=== PATIENT | female | born 1940 | race Caucasian/White ===

== ENCOUNTER 2017-01-28 15:50 | Inpatient (IN) | payer OTHER ==
--- NOTE | ~2017-01-28 | CR63 ---
[facility] A Service of [facility] RADIOLOGY TEXT RESULTS PATIENT: RAFITA BERG LOCATION: [facility] 334- : 42 UNIT #: [id number] AGE: [address]: Flor Ba MD SEX: F ORDER DR: [id number] [facility] [address] [facility]. [place], [place] [address] [id number] I MR#: [id number] Acc #: [id number] NAME: RAFITA BERG. : 1940 SEX: F STUDY DATE/TIME: 02/02/2017 19:03 UNIT: [address] ROOM: [facility] STUDY DESCRIPTION: CR Chest 2 View Attending Physician: Flor Ba M.D. Ordering Physician: Flor Ba M.D. Primary Care Physician: Sharif Marcus M.D. MEDICAL IMAGING REPORT This report is preliminary unless electronic signature is present EXAM Two views chest, 02/02/2017. HISTORY Acute respiratory failure, pneumonia. Duration a few days. TECHNIQUE AP and lateral radiographs of the chest are presented. COMPARISON 01/31/2017, 0453 hours. FINDINGS No acute-appearing bony abnormality. Incompletely visualized posterior fixation hardware at lumbar spine level. Hardware appears intact in visualized extent. Heart probably mildly enlarged. Lungs well inflated. No acute disease in right lung. Airspace disease at the left lung base is improved but not yet resolved. There are probably components of atelectasis and pneumonia present. There is a small left pleural effusion, probably smaller than on prior study. The left mid to upper lung zone is clear. There is no pneumothorax or suspicious nodule. There is healed granulomatous disease. Dictated by... Manfred Sterling M.D. THIS IS AN ELECTRONICALLY VERIFIED REPORT Manfred Sterling M.D. at 02/04/2017 10:44 PM CRICKET/acosta TD: 02/03/2017 07:22 [facility] A Service of [facility] RADIOLOGY TEXT RESULTS PATIENT: RAFITA BERG LOCATION: [facility] 334-01 : 42 UNIT #: [id number] AGE: [address]: Flor Ba MD SEX: F ORDER DR: GARRICK #: [id number] MEDICAL IMAGING REPORT Page 1 of 1 COPY
--- NOTE | ~2017-01-28 | DS ---
Unit #: [id number] #: [id number] Patient: AISHWARYA BERG [id number] [place] [id number] I MR#: [id number] NAME: AISHWARYA BERG. ROOM: 334 Age: 76 Sex: F Admission Date: 01/28/2017 : 1940 Discharge Date: Attending Physician: Flor Ba M.D. Primary Care Physician: Sharif Marcus M.D. DISCHARGE SUMMARY FINAL DIAGNOSES 1. Acute on chronic hypoxic respiratory failure. 2. Pneumonia. 3. Pulmonary embolism ruled out. 4. Acute exacerbation of chronic obstructive pulmonary disease. 5. Acute on chronic systolic and diastolic congestive heart failure. 6. Severe esophagitis with esophageal ring and duodenal ulcer. 7. Hypotension which is resolved. OTHER MEDICAL HISTORY 1. Chronic back pain with multiple spine surgeries. 2. Chronic anxiety. 3. Tobacco abuse. 4. B12 deficiency. DISCHARGE MEDICATIONS 1. Please note the patient received IV ceftriaxone and IV Zithromax during hospitalization. We are going to consult paper rewinder operator before discharge about the antibiotics. 2. Cyanocobalamin 1000 mcg injection q.7 days. 3. Potassium 20 mEq daily. 4. Percocet 10/325 mg 1 tablet t.i.d. p.r.n. severe pain. 5. Duragesic patch 75 mcg q.72 h. 6. Furosemide 40 mg daily. 7. Mucomyst 400 mg nebulizer q.12 h. 8. Coreg 3.125 mg b.i.d. Hold if systolic blood pressure is less than 100. 9. Xanax 1 mg b.i.d. 10. Prednisone 40 mg daily for 4 days, decreased by 10 mg every 3 days until off. 11. Mini-Neb treatments with duo-nebs q.i.d. and q.[address]ULTANTS [address]. Arnulfo Styles from pulmonary services. PROCEDURES PERFORMED Bronchoscopy done on 01/31/2017. It showed the patient did have thick mucoid secretions in both lungs which was therapeutically suctioned. DIAGNOSTIC DATA LABORATORY: At discharge, bronch culture is 1+ normal elena. BMP showed sodium 143, potassium 4.1, chloride 107, BUN 24, creatinine 0.6, magnesium 1.7. CBC shows white blood cell count 13.7, hemoglobin 11.5, hematocrit 35.9 and platelet count of 222. BNP on 01/31/2017 was 1,082. Troponin Unit #: [id number] #: [id number] Patient: AISHWARYA BERG was less than 0.05. IMAGING: Most recent chest x-ray was done 01/31/2017, which showed left basilar opacity and pleural fluid. CTA of the chest was done and shows air fluid level within the left lower lobe bronchus suggesting collapse of left lower lobe and internal hypoattenuation. Findings are aspiration and mucus plugging left lower lobe. HOSPITAL COURSE Ms. Aishwarya Berg is a 76-year-old female who was admitted on 01/28/2017 with shortness of breath. The patient was found to have pufay-rz-pyjuemz hypoxic respiratory failure, pneumonia, chronic obstructive pulmonary disease exacerbation, congestive heart failure. The patient was treated with oxygen, mini-neb treatment, IV antibiotics, IV steroids. Dr. Styles was consulted. The patient had bronchoscopy done with findings as above. Cultures are negative. The patient will require 24-hour oxygen. She uses only at night at home. We need to continue antibiotics, tapering dose of steroids and nebulizer treatment. The patient does have a history of chronic systolic and diastolic congestive heart failure. BNP was elevated. The patient did receive diuretics during hospitalization and we are going to discharge her on direction to keep an eye on her input and output and make her fluid restriction 1400 cc a day. The patient does have severe esophagitis with esophageal ring. There is a question of aspiration. A swallow study was done during hospitalization and diet was adjusted accordingly. Speech evaluated. Mechanical soft and ground meats. No mixed. [place] thick liquids with dietary restrictions. Chin tuck, upright for all p.o. Assist with meals. PHYSICAL EXAMINATION VITALS: On discharge, blood pressure 121/64, respiratory rate 18, pulse 83, temperature 98.0. HEENT: Normocephalic. CHEST: Decreased air entry bilaterally. HEART: S1 and S2 positive. Regular rhythm. ABDOMEN: Soft. EXTREMITIES: Negative edema. DISPOSITION The patient will be discharged if the rehab facility is available and after evaluation by Dr. Styles. DISCHARGE INSTRUCTIONS 1. The patient will received Lasix 20 mg IV 1 dose. 2. Oxygen will be needed 24/. 3. Physical therapy and occupational therapy at rehab. 4. CBC and BMP in one week. 5. Chest x-ray will be done before discharge. 6. Medications as per medication reconciliation. Dictated by... Flor Ba M.D. Unit #: [id number] #: [id number] Patient: AISHWARYA BERG KN/gz TD: 02/02/2017 10:47 JOB #: [id number] DISCHARGE SUMMARY Page 1 of 1 X Flor Ba MD X DISCHARGE SUMMARY
--- NOTE | ~2017-01-28 | HP ---
Unit #: [id number] #: [id number] Patient: RAFITA BERG [id number] [address] [address] [id number] I MR#: [id number] NAME: RAFITA BERG. ROOM: 334 Age: 76 Sex: F Admission Date: 01/28/2017 : 1940 Attending Physician: Flor Ba M.D. Primary Care Physician: Sharif Marcus M.D. HISTORY AND PHYSICAL CHIEF COMPLAINT Shortness of breath. HISTORY OF PRESENT ILLNESS This is a 76-year-old female who is a very poor historian is not able to provide much history but, according to her, she has not been feeling well for the last one week. EMS was called and patient was brought to the ER. She has been vomiting for the last two days. She thinks that she is dehydrated. Her blood pressure was down 94/72. The patient complained of legs hurt, everything hurts. There is no family member in the room. Will try to contact family member for detailed history. PAST MEDICAL HISTORY 1. Cardiomyopathy with ejection fraction of 15% to 20%. 2. Grade III diastolic dysfunction. 3. Severe ulcerative esophagitis. 4. Chronic respiratory failure. 5. COPD. 6. Aspiration pneumonia, multiple times. 7. Chronic back pain with multiple spine surgeries. 8. Chronic anxiety. 9. Tobacco abuse. HOME MEDICATIONS 1. Percocet 10/325 one tablet t.i.d. 2. ProAir one inhaler t.i.d. 3. Cyanocobalamin 1000 mcg injection weekly. 4. Xanax 1 mg b.i.d. 5. Coreg 3.125 mg b.i.d. 6. Combivent one inhaler q.i.d. 7. Duragesic patch 75 mcg per hour daily. 8. Ipratropium nebulizer treatment q.i.d. ALLERGIES Morphine. SOCIAL HISTORY Patient lives at home with her son. She smokes one pack per day. No history of alcohol abuse or drug abuse. FAMILY HISTORY Positive for CVA. Patient's mother also had congestive heart failure. REVIEW OF SYSTEMS Unit #: [id number] #: [id number] Patient: RAFITA BERG Not obtainable at this time. PHYSICAL EXAMINATION VITAL SIGNS: Blood pressure 90/50, respiratory rate 20, pulse 68, temperature 98.9, oxygen saturation is 94%. GENERAL: The patient is lying in bed. Does not seem to be in any distress. She is on BiPAP at this time and is being evaluated in room 334. HEAD: Normocephalic. Eye movements are normal. Pale conjunctivae. CHEST: Decreased air entry bilateral. Wheezing is heard. Crackles are heard. HEART: S1, S2 positive, regular rhythm. ABDOMEN: Soft. EXTREMITIES: Negative edema. Pulses are palpable. NEUROLOGIC: Patient seems to be somewhat lethargic. She is awake. Does answer some questions. DIAGNOSTIC STUDIES LABORATORY: ABG on 4 liters shows pH 7.48, pCO2 is 36.7, pO2 is 72.5, oxygen saturation is 93%. Troponin less than 0.05. Lactic acid 1.2. BMP shows sodium 131, potassium 3.3, chloride 93, BUN 49, creatinine 0.7, alkaline phosphatase 111. CBC shows WBC 21.7, hemoglobin 15.3, hematocrit 46.2, platelet count 306. BNP 277. Blood cultures are negative so far. IMAGING: Chest x-ray single view was done which shows right basilar infiltrate. CT scan of the abdomen and pelvis was done which shows right lower lobe pneumonia and sigmoid diverticulosis without evidence of any diverticulitis. CTA of the chest was done which has 1) pretty significant air-fluid levels within the left lower lobe bronchus with distal collapse of the left lower lobe with internal hypoattenuation. Findings are worrisome for aspiration and mucous plugging of the left lower lobe. 2) questionable tiny nonocclusive subsegmental pulmonary embolism. ASSESSMENT AND PLAN Patient is being admitted to telemetry unit with: 1. Zihvd-wo-tjosmdf hypoxic respiratory failure. 2. Pneumonia. 3. Probable pulmonary embolism right lower lobe. 4. Chronic obstructive pulmonary disease exacerbation. 5. Congestive heart failure, systolic and diastolic, elnqg-sv-iavsunm. 6. Severe esophagitis with esophageal ring and duodenal ulcer. 7. Hypotension. PLAN 1. Admit to telemetry unit. Dr. Styles has been consulted. 2. IV Rocephin and IV Zithromax is being started. 3. IV Solu-Medrol 60 mg q.6 h. for COPD exacerbation. 4. Lovenox is being increased to 1 mg/kg body weight subcu q.12 h. for possible pulmonary embolism. 5. Swallow study will be done to rule out aspiration. 6. All medications have been reviewed and adjusted. 7. Plan of care has been discussed with patient. Unit #: [id number] #: [id number] Patient: RAFITA BERG Dictated by Angelita Chinchilla/anette TD: 01/29/2017 15:15 JOB #: [id number] HISTORY AND PHYSICAL Page 1 of 1 X Flor Ba MD X HISTORY AND PHYSICAL
--- NOTE | ~2017-01-28 | CT16 ---
[facility] A Service of [facility] & [facility] RADIOLOGY TEXT RESULTS PATIENT: RAFITA BERG LOCATION: [facility] 334-01 : 42 UNIT #: [id number] AGE: [address]: Flor Ba MD SEX: F ORDER DR: [id number] [facility] [address] [place], [place] [address] [id number] I MR#: [id number] Acc #: [id number] NAME: RAFITA BERG. : 1940 SEX: F STUDY DATE/TIME: 01/29/2017 8:16 UNIT: A U ROOM: [facility] STUDY DESCRIPTION: CT Angio Chest for PE Attending Physician: Flor Ba M.D. Ordering Physician: Arnulfo Styles M.D. Primary Care Physician: Sharif Marcus M.D. MEDICAL IMAGING REPORT This report is preliminary unless electronic signature is present EXAM CT angiography of the chest with IV contrast, PE protocol COMPARISON CT chest dated May 31, 2015 INDICTIONS 76-year-old female with dyspnea and cough for 6 days, worsening today with decrease suction saturation. FINDINGS Axial CT imaging of the chest was performed during arterial phase after IV administration of 80 mL Isovue-370. Coronal MIPs and sagittal reformats were constructed. The CT exam was performed with one or more of the following radiation dose reduction techniques: automatic exposure control, adjustment of mA and/or kV according to patient size, and iterative reconstruction. Evaluation of thyroid gland is limited by streak artifact from metal density over the left upper chest. There is mild mucous filling or mural thickening of the right lower lobe bronchus with bronchovascular thickening extending into the right lower lobe. Evaluation for pulmonary embolus in right lower lobe is limited by motion. There is an apparent peripheral nonocclusive tiny filling defect in a subsegmental branch in one of the right lower lobe pulmonary arteries. This may be an artifact. There are tree-in-bud nodular opacities seen throughout the right lower lobe suggesting acute bronchiolitis. There is minimal dependent atelectasis in the right lower lobe. There is a background of emphysema. Calcified granuloma right upper lobe. Focal pleural calcification in the dependent right upper lobe perhaps due to remote trauma or infection. There is volume loss in the left lower lobe with internal hypoattenuation despite the volume loss. This is favored to represent a pneumonia and STS. [facility] A Service of [facility] & [facility] RADIOLOGY TEXT RESULTS PATIENT: RAFITA BERG LOCATION: A 334-01 : 42 UNIT #: [id number] AGE: [address]: Flor Ba MD SEX: F ORDER DR: there is air-fluid level within the left lower lobe bronchus. Findings are concerning for ongoing aspiration. There is diffuse bronchial wall thickening in the lungs suggesting acute and/or chronic bronchitis. No pleural effusion or pneumothorax. Mild cardiomegaly. Dilatation of the main pulmonary artery measuring up to 3.3 cm suggesting pulmonary arterial hypertension. Diffuse atherosclerotic calcification of the thoracic aorta with extension into the proximal common carotid arteries. There is dense calcification at the origin of the left subclavian artery which is likely causing some degree of stenosis. Noncalcified and calcified plaque seen in the upper abdominal aorta with extension of calcified and noncalcified plaque to the origins of the celiac and superior mesenteric arteries. These vessels are incompletely imaged but appear to remain patent. No adenopathy. Calcified granulomas within the spleen. Small hiatal hernia. IMPRESSION 1. Air-fluid level within the left lower lobe bronchus with distal collapse of left lower lobe and internal hypoattenuation. Findings are worrisome for aspiration and/or mucous plugging with left lower lobe pneumonia. There is no associated pleural effusion. In the right lower lobe within the right lower lobe bronchus there is also an air-fluid level and there are peripheral tree-in-bud nodular opacities throughout the right lower lobe, suggesting bronchiolitis. Ongoing aspiration is not excluded. 2. Questionable tiny nonocclusive subsegmental pulmonary embolus in the right lower lobe. This region is limited in evaluation due to motion. This could certainly represent motion artifact but tiny nonocclusive pulmonary embolus cannot be excluded. One could consider short-term interval CT angiography followup versus empiric treatment. It is thought that the primary issue causing dyspnea and hypoxia is within the left lower lobe where again, aspiration pneumonia is suspected. 3. Dilatation of the main pulmonary artery suggestive of pulmonary hypertension. 4. Focal plaque along the posterior pleura right upper lobe, which is calcified, possibly due to remote trauma or infection but asbestosis exposure could cause similar findings. There are calcified granulomas seen elsewhere in the lungs. 5. At least mild possibly moderate stenosis of origin of the left subclavian artery due to calcified plaque. There is noncalcified and calcified plaque in the abdominal aorta with extension to the proximal celiac and superior mesenteric artery. 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 There is at least mild, possibly moderate stenosis at the origin of superior mesenteric artery, incompletely evaluated on this study. 6. Emphysema. [facility] A Service of [facility] RADIOLOGY TEXT RESULTS PATIENT: RAFITA BERG LOCATION: [facility] 334-01 : 42 UNIT #: [id number] AGE: [address]: Flor Ba MD SEX: F ORDER DR: Dictated by... Yan Hancock M.D. THIS IS AN ELECTRONICALLY VERIFIED REPORT Yan Hancock M.D. at 02/05/2017 4:16 PM Lacey TD: 01/29/2017 13:21 JOB #: [id number] MEDICAL IMAGING REPORT Page 1 of 1 COPY
--- NOTE | ~2017-01-28 | CT4 ---
[facility] A Service of [facility] & [facility] RADIOLOGY TEXT RESULTS PATIENT: RAFITA BERG LOCATION: [facility] 334-01 : 42 UNIT #: [id number] AGE: [address]: Flor Ba MD SEX: F ORDER DR: [id number] [facility] [address] [place], [place] [address] [id number] I MR#: [id number] Acc #: [id number] NAME: RAFITA BERG. : 1940 SEX: F STUDY DATE/TIME: 01/28/2017 16:53 UNIT: A PCU ROOM: [facility] STUDY DESCRIPTION: CT Abd and Pelv Wo Cont Attending Physician: Flor Ba M.D. Ordering Physician: Handy Holbrook M.D. Primary Care Physician: Sharif Marcus M.D. MEDICAL IMAGING REPORT This report is preliminary unless electronic signature is present EXAM CT abdomen and pelvis, 01/28/2017 INDICATION Abdominal pain on the right side for the last 2 days with vomiting. Pain currently rates 10 out of 10. TECHNIQUE Axial images were obtained through the abdomen and pelvis without contrast. Multiplanar reformats were obtained. Comparison is made with 12/18/2104. This CT exam was performed with one or more of the following radiation dose reduction techniques: automatic exposure control, adjustment of mA and/or kV according to patient size, and iterative reconstruction. FINDINGS ABDOMEN: Dense consolidation in the right lower lobe is presumably secondary to pneumonia. There is extensive atherosclerotic disease. There is also extensive streak artifact from the patient's spinal fusion hardware. No renal or ureteral stones are seen and there is no hydronephrosis. There is a left renal cyst. The unenhanced solid organs are otherwise grossly normal. Unopacified GI tract is normal. There is no free fluid. The patient is fused from L2 through S1 with pedicle screws. Laminectomies are present as well. PELVIS: There are no lower ureteral stones. The bladder is normal. The uterus is surgically absent. There is mild sigmoid diverticulosis. There is no evidence of acute diverticulitis. GI tract is otherwise unremarkable. The appendix is not clearly seen. 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 [facility]. [facility] A Service of [facility] & [facility] RADIOLOGY TEXT RESULTS PATIENT: RAFITA BERG LOCATION: [facility] 334-01 : 42 UNIT #: [id number] AGE: [address]: Flor Ba MD SEX: F ORDER DR: IMPRESSION 1. Right lower lobe pneumonia. 2. No renal or ureteral stones. No hydronephrosis. 3. Sigmoid diverticulosis without evidence for diverticulitis. The remainder of the GI tract is grossly normal. The appendix is not clearly seen, but there is nothing to suggest acute appendicitis. 4. Hysterectomy and lumbar fusion. Dictated by... Lars Arciniega Jr., M.D. THIS IS AN ELECTRONICALLY VERIFIED REPORT Lars Arciniega Jr., M.D. at 01/29/2017 8:46 PM EARL/christy TD: 01/29/2017 01:01 JOB #: [id number] MEDICAL IMAGING REPORT Page 1 of 1 COPY
--- NOTE | ~2017-01-28 | EKG ---
PATIENT: RAFITA BERG UNIT #: [id number] Ventricular Rate: 113 BPM Atrial Rate: 113 BPM P-R Interval: 132 ms QRS Duration: 76 ms Q-T Interval: 464 ms QTC Calculation(Bezet): 636 ms P [place]: 81 degrees Calculated R [place]: 57 degrees Calculated T [place]: 79 degrees Diagnosis Line: Sinus tachycardia Diagnosis Line: Right atrial enlargement Diagnosis Line: Nonspecific ST and T wave abnormality Diagnosis Line: Abnormal ECG Diagnosis Line: When compared with ECG of 17-DEC-2014 23:16, Diagnosis Line: ST now depressed in Inferior leads Diagnosis Line: Non-specific change in ST segment in Lateral leads Diagnosis Line: Nonspecific T wave abnormality now evident in Diagnosis Line: Lateral leads Diagnosis Line: Confirmed by JOVANY OROURKE MD ([id number]) on Diagnosis Line: 01/30/2017 3:16:51 PM INTERPRETING MD: SHARAD BARRERA
--- NOTE | ~2017-01-28 | CO ---
Unit #: [id number] #: [id number] Patient: RAFITA BERG [id number] [address] [address] [id number] Cristin MR#: [id number] NAME: RAFITA BERG ROOM: 334 Age: 76 Sex: F Admission Date: 01/28/2017 : 1940 Attending Physician: Flor Ba M.D. Primary Care Physician: Sharif Marcus M.D. Consultation Date: 01/29/2017 CONSULTATION REPORT REASON FOR CONSULTATION Respiratory failure. CHIEF COMPLAINT Shortness of breath. HISTORY OF PRESENT ILLNESS A 76-year-old female with past medical history of cardiomyopathy, grade 3 diastolic dysfunction. She had ulcerative esophagitis, COPD, aspiration pneumonia, chronic back pain, chronic anxiety, tobacco use who presents with a complaint of shortness of breath. Was found to have left lower lobe collapse. I am seeing the patient at bedside. She denies any nausea, vomiting, diarrhea. PHYSICAL EXAMINATION VITAL SIGNS: Temperature 98, pulse 87, respirations 12, blood pressure 130/70. NEUROLOGIC: Awake, alert, oriented. No neuro deficit. HEENT: PERRLA plus 1. NECK: Supple. No JVD. CHEST: Bilateral air entry. Bilateral mild rhonchi. GASTROINTESTINAL: Nontender, soft. Bowel sounds positive. EXTREMITIES: No edema. SKIN: No rash. No ulcer. LYMPHATIC: No lymphadenopathy. DIAGNOSTIC STUDIES Labs and imaging have been reviewed. MEDICATIONS As per NOV, has been reviewed. ALLERGIES Have been reviewed. ASSESSMENT 1. Acute on chronic hypoxic respiratory failure. 2. Pneumonia. 3. Pulmonary embolism. 4. Right lower lobe chronic obstructive pulmonary disease. 5. Congestive heart failure. 6. Severe esophagitis. 7. Hypertension. Unit #: [id number] #: [id number] Patient: RAFITA BERG PLAN Plan is to continue IV steroids, IV antibiotics, bronchodilator. Continue to monitor patient. Will change Lovenox to subcutaneous and also will get a consent for bronchoscopy and follow cultures. Please see orders for detailed plan. Thank you very much for this consultation. Dictated by... Angelita Butt TD: 02/02/2017 17:22 JOB #: [id number] CONSULTATION REPORT Page 1 of 1 X Arnulfo Styles MD CONSULTATION REPORT
--- NOTE | ~2017-01-28 | CR72 ---
[facility] A Service of [facility] & [facility] RADIOLOGY TEXT RESULTS PATIENT: RAFITA BERG LOCATION: [facility] 334- : 42 UNIT #: [id number] AGE: [address]: Flor Ba MD SEX: F ORDER DR: [id number] [facility] [address] [place], [place] [address] [id number] I MR#: [id number] Acc #: [id number] NAME: RAFITA BERG : 1940 SEX: F STUDY DATE/TIME: 01/31/2017 4:53 UNIT: [address] ROOM: [facility] STUDY DESCRIPTION: CR Chest Single View Portable Attending Physician: Flor Ba M.D. Ordering Physician: Arnulfo Styles M.D. Primary Care Physician: Sharif Marcus M.D. MEDICAL IMAGING REPORT This report is preliminary unless electronic signature is present EXAM Portable chest INDICATION Shortness of air today. PROCEDURE Frontal view chest. COMPARISON 01/30/2017 FINDINGS Stable cardiomegaly. Increasing left basilar opacity and pleural fluid. Right lung is clear. Possible trace left pneumothorax. IMPRESSION Increasing left basilar opacity and pleural fluid. Possibly a trace left-sided pneumothorax. Dictated by... Terry Mobley M.D. THIS IS AN ELECTRONICALLY VERIFIED REPORT Terry Mobley M.D. at 01/31/2017 10:13 PM EED/jaz TD: 01/31/2017 10:42 JOB #: [id number] MEDICAL IMAGING REPORT Page 1 of 1 COPY
--- NOTE | ~2017-01-28 | CR63 ---
[facility] A Service of [facility] & [facility] RADIOLOGY TEXT RESULTS PATIENT: RAFITA BERG LOCATION: [facility] 334-01 : 42 UNIT #: [id number] AGE: [address]: Flor Ba MD SEX: F ORDER DR: [id number] [facility] [address] [place], [place] [address] [id number] I MR#: [id number] Acc #: [id number] NAME: RAFITA BERG : 1940 SEX: F STUDY DATE/TIME: 01/30/2017 10:30 UNIT: [address] ROOM: [facility] STUDY DESCRIPTION: CR Chest 2 View Attending Physician: Flor Ba M.D. Ordering Physician: Arnulfo Styles M.D. Primary Care Physician: Sharif Marcus M.D. MEDICAL IMAGING REPORT This report is preliminary unless electronic signature is present EXAM Chest 2 views 01/30/2017 10:30 hours HISTORY A 76-year-old woman complaining of shortness of air with cough and weakness since 01/28/2017. History of COPD and CHF. COMPARISON CT chest 01/29/2017 FINDINGS Upright PA and lateral views demonstrate heart size within normal limits. The aorta is mildly tortuous and atherosclerotic. There underlying calcified granulomatous changes. There is persistent retrocardiac density in the left lower lobe consistent with pneumonia is seen on 01/29/2017. There is hazy density at the right lung base also unchanged from prior CT. The upper lungs are clear. Lateral views suggest blunting of the left costophrenic sulcus consistent with a very small left effusion. IMPRESSION 1. Persistent left greater than right basilar densities suggesting pneumonia or atelectasis. Findings could be related to aspiration as seen on CT scan 01/29/2017. The upper lungs are clear. 2. There is blunting of the left costophrenic sulcus suggesting a small left effusion. Dictated by... Christi Contreras M.D. THIS IS AN ELECTRONICALLY VERIFIED REPORT Christi Contreras M.D. at 01/30/2017 2:30 PM [facility] A Service of [facility] & [facility] RADIOLOGY TEXT RESULTS PATIENT: RAFITA BERG LOCATION: [facility] 334-01 : 42 UNIT #: [id number] AGE: [address]: Flor Ba MD SEX: F ORDER DR: Abel TD: 01/30/2017 12:26 JOB #: [id number] MEDICAL IMAGING REPORT Page 1 of 1 COPY
--- NOTE | ~2017-01-28 | CR72 ---
[facility] A Service of [facility] & [facility] RADIOLOGY TEXT RESULTS PATIENT: RAFITA BERG LOCATION: [facility] 334-01 : 42 UNIT #: [id number] AGE: [address]: Flor Ba MD SEX: F ORDER DR: [id number] [facility] [address] [place], [place] [address] [id number] I MR#: [id number] Acc #: [id number] NAME: RAFITA BERG : 1940 SEX: F STUDY DATE/TIME: 01/28/2017 16:29 UNIT: [address] ROOM: [facility] STUDY DESCRIPTION: CR Chest Single View Portable Attending Physician: Flor Ba M.D. Ordering Physician: Handy Holbrook M.D. Primary Care Physician: Sharif Marcus M.D. MEDICAL IMAGING REPORT This report is preliminary unless electronic signature is present EXAM Portable chest, 01/28/2017 INDICATION Body aches, shortness of air and hypotension for 5 days. History of COPD. FINDINGS AP portable chest is compared with 05/29/2016. Thoracic dextroscoliosis is again seen. Heart size normal. There is atherosclerotic disease in the aorta. Granulomatous calcifications are again identified. Left lung is otherwise clear. There is new infiltrate at the right base which could reflect pneumonia. IMPRESSION Emphysema with right basilar infiltrate worrisome for pneumonia. Dictated by... Lars Arciniega Jr., M.D. THIS IS AN ELECTRONICALLY VERIFIED REPORT Lars Arciniega Jr., M.D. at 01/29/2017 8:46 PM EARL/christy TD: 01/29/2017 00:13 JOB #: [id number] MEDICAL IMAGING REPORT Page 1 of 1 COPY
--- NOTE | ~2017-01-28 | OR ---
Unit #: [id number] #: [id number] Patient: RAFITA BERG [id number] [place] [address] [id number] I MR#: [id number] NAME: RAFITA BERG ROOM: 334 Date of Procedure: 01/31/2017 Admission Date: 01/28/2017 Surgeon: Arnulfo Styles M.D. : 1940 Attending Physician: Flor Ba M.D. Primary Care Physician: Sharif Marcus M.D. PROCEDURE OPERATIVE NOTE PROCEDURE PERFORMED Bronchoscopy. INDICATION Pneumonia. PREOPERATIVE DIAGNOSIS Pneumonia. POSTOPERATIVE DIAGNOSIS pneumonia. DETAILS OF THE PROCEDURE After taking consent from the patient's family, explaining risks and benefits, patient was placed in appropriate position. Bronchoscope introduced through the oral cavity. Vocal cords appeared to be symmetrically moving toward the midline. Trachea was normal. Ashlyn was sharp. We examined right upper, right middle and right lower lobe, left upper lobe, lingula and left lower lobe. No endobronchial lesion was found. There were thick mucoid secretions in both lungs which were therapeutically suctioned and we did a bronchoalveolar lavage in the left lower lobe area with 90 mL of saline in and 40 mL back. Patient tolerated the procedure very well. No complication happened. Dictated by... Angelita Butt/smita TD: 01/31/2017 15:43 JOB #: [id number] Unit #: [id number] #: [id number] Patient: RAFITA BERG PROCEDURE OPERATIVE NOTE Page 1 of 1 X Arnulfo Styles MD PROCEDURE OPERATIVE NOTE
[~2017-01-28 15:50] MED LIST: ADVAIR 250-501 EACH IH; ALB/IPRATROPIUM/1 E1 INH; ALPRAZOLAM PO; AMOXICILLIN500 M1 PO; ASPIRIN81 MG PO; AUGMENTIN875 MG PO; CARDIZEM30 M1 PO; COMBIVENT INH14.7 G1 IH; COMBIVENT INH14.7 GM; COMBIVENT INH14.7 GM IH; COMBIVENT RESPIM4 GM IH; COMBIVENT U/D3 ML INH; COREG3.125 MG PO; DIFLUCAN100 MG PO; DUONEB 2.5-0.5 M3 ML NEB; DURAGESIC1 EAC1 TD; HYDROCODON-ACE1 EAC5 PO; HYOSCYAMINE0.375 M5 PO; IPRAT-ALBUT 0.5-3 ML INH; LASIX20 MG PO; LEVALBUTER1.25 MG/1 INH; LEVAQUIN750 MG PO; LIPITOR40 MG PO; LORTAB 10/500 T1 TAB; LORTAB 10/500 T1 TAB PO; METHOCARBAMOL500 MG PO; MIRALAX17 GM PO; NICOTINE TRANSD14 MG TD; NICOTINE TRANSD21 MG EXT; OXYCONTIN PO; OXYCONTIN60 MG PO; OXYGEN; PANTOPRAZOLE SO40 MG PO; PERCOCET 10/31 UDTA1 PO; PERCOCET 10/3251 TAB PO; PHENERGAN25 M1 PO; PHENERGAN25 MG PO; POTASSIUM CHLO10 ME1 PO; PREDNISOLONE5 MG PO; PREDNISONE PO; PRILOSEC20 MG PO; PROAIR RESPICL90 MCG; PROTONIX PO; PROZAC PO; RESTORIL15 MG; SENNA PO; SINGULAIR PO; SPIRIVA18 MCG INH; SPIRIVA18 MCG PO; SYMBICORT INH; TEMAZEPAM PO; TEMAZEPAM30 MG PO; VIT B-12 PO; VITAMIN B-1000 MCG/1 IJ; VITAMIN B-1000 MCG/1 SUBQ; XANAX XR1 MG PO; XANAX1 MG PO; ZANAX PO
[2017-01-28 16:44] LABS: BASOPHIL# 0.1 X10e3 (0-0.3); BASOPHIL% 0.4 % (0-2.5); EOSINOPHIL# 0.1 X10e3 (0-0.7); EOSINOPHIL% 0.3 % (0.0-7.0); HEMATOCRIT 46.2 % (35.0-45.0); HEMOGLOBIN 15.3 gm/dL (12.0-16.0); LYMPHOCYTE# 2.8 X10e3 (1.0-3.5); LYMPHOCYTE% 12.9 % (17.0-45.0); MEAN CELL VOLUME 105.9 FL (83-96); MEAN CORPUSCULAR HGB CONC 33.1 g/dL (30-36); MEAN PLATELET VOLUME 8.5 FL (6.5-11.5); MONOCYTE% 9.1 % (3.0-12.0); NEUTROPHIL# 16.8 X10e3 (1.5-7.1); NEUTROPHIL% 77.3 % (40-75); PLATELET COUNT 306 X10e3 (140-420); RED BLOOD COUNT 4.36 X10e (3.90-5.30); RED CELL DISTRIBUTION WIDTH 13.2 % (11.0-15.5); WHITE BLOOD COUNT 21.7 X10e3 (4.0-10.5)
[2017-01-28 16:48] LABS: ARTERIAL BLOOD GAS CARBOXY HB 2.6 %sat (0.0-9.0); ARTERIAL BLOOD GAS HCO3 27.7 mmol/L; ARTERIAL BLOOD GAS MET HB 0.5 %sat (0.0-2.0); ARTERIAL BLOOD GAS PCO2 36.7 mmHg (35.0-45.0); ARTERIAL BLOOD GAS pH 7.487 (7.350-7.450)
[2017-01-28 16:50] LABS: ARTERIAL BLOOD GAS ALLEN TEST NORMAL; ARTERIAL BLOOD GAS ART SITE RIGHT RADIAL; ARTERIAL BLOOD GAS DELIVERY NASAL CANNULA; ARTERIAL BLOOD GAS PO2 72.5 mmHg (80.0-100); ARTERIAL DRAW? YES
[2017-01-28 16:51] LABS: PROTHROMBIN TIME (PATIENT) 10.5 SECONDS (9.6-11.5)
[2017-01-28 16:52] LABS: DIFF IND YES
[2017-01-28 16:58] LABS: POC - CKMB 4.2 ng/mL (0.0-7.9); POC - TROPONIN <0.05 ng/mL (<=0.05)
[2017-01-28 17:02] LABS: ALBUMIN SERUM 2.9 g/dL (3.5-5.0); BILIRUBIN, DIRECT 0.3 mg/dL (0.0-0.2); BILIRUBIN,INDIRECT 0.9 mg/dL (0.0-0.9); BILIRUBIN,TOTAL 1.2 mg/dL (0.2-2.0); CALCIUM SERUM 8.8 mg/dL (8.4-10.2); CREATININE SERUM 0.7 mg/dL (0.6-1.4); GLOM FILT RATE Estimated 85.4 mL/min (>60); POTASSIUM 3.3 mmol/L (3.5-5.1); PROTEIN TOTAL SERUM 7.3 g/dL (6.0-8.3)
[2017-01-28 17:08] LABS: ANISOCYTOSIS SL; PLATELET ESTIMATE NORMAL (NORMAL)
[2017-01-28] MEDS ORDERED: COMBIVENT RESPIM4 GM INH (18:23)
[2017-01-28] MEDS ORDERED: COREG3.125 MG PO (18:23)
[2017-01-28] MEDS ORDERED: IPRAT-ALBUT 0.5-3 ML NEB (18:24)
[2017-01-28] MEDS ORDERED: DURAGESIC1 EAC1 TOP (18:24)
[2017-01-28] MEDS ORDERED: LEVALBUTER1.25 MG/1 NEB (18:25)
[2017-01-28] MEDS ORDERED: PROAIR HFA8.5 GM INH (18:25)
[2017-01-28] MEDS ORDERED: PERCOCET10 PO (18:25)
[2017-01-28] MEDS ORDERED: XANAX1 MG PO (18:27)
[2017-01-28] MEDS ORDERED: CYANOCOBAL1000 MCG/1 INJ (18:27)
[2017-01-29 06:33] LABS: ARTERIAL BLD GAS O2 SATURATION 82.6 % (90.0-100.0); ARTERIAL BLOOD GAS CARBOXY HB 0.6 %sat (0.0-9.0); ARTERIAL BLOOD GAS HCO3 26.7 mmol/L; ARTERIAL BLOOD GAS MET HB 0.8 %sat (0.0-2.0); ARTERIAL BLOOD GAS pH 7.311 (7.350-7.450)
[2017-01-29 06:57] LABS: ARTERIAL BLOOD GAS ALLEN TEST N; ARTERIAL BLOOD GAS ART SITE RIGHT RADIAL; ARTERIAL BLOOD GAS DELIVERY HIFLOW; ARTERIAL BLOOD GAS PCO2 52.9 mmHg (35.0-45.0); ARTERIAL DRAW? YES
[2017-01-30 04:10] LABS: ARTERIAL BLD GAS O2 SATURATION 83.7 % (90.0-100.0); ARTERIAL BLOOD GAS CARBOXY HB 0.6 %sat (0.0-9.0); ARTERIAL BLOOD GAS HCO3 26.1 mmol/L; ARTERIAL BLOOD GAS MET HB 0.6 %sat (0.0-2.0); ARTERIAL BLOOD GAS PCO2 40.7 mmHg (35.0-45.0); ARTERIAL BLOOD GAS pH 7.415 (7.350-7.450)
[2017-01-30 04:15] LABS: ARTERIAL BLOOD GAS ALLEN TEST NORMAL; ARTERIAL BLOOD GAS ART SITE RIGHT RADIAL; ARTERIAL BLOOD GAS DELIVERY ROOM AIR; ARTERIAL BLOOD GAS PO2 46.7 mmHg (80.0-100); ARTERIAL DRAW? YES
[2017-01-30 06:23] LABS: HEMATOCRIT 34.6 % (35.0-45.0); MEAN CELL VOLUME 107.8 FL (83-96); MEAN CORPUSCULAR HEMOGLOBIN 34.6 PG (28-34); MEAN CORPUSCULAR HGB CONC 32.1 g/dL (30-36); MEAN PLATELET VOLUME 8.4 FL (6.5-11.5); RED BLOOD COUNT 3.21 X10e (3.90-5.30); RED CELL DISTRIBUTION WIDTH 13.2 % (11.0-15.5); WHITE BLOOD COUNT 28.9 X10e3 (4.0-10.5)
[2017-01-30 06:34] LABS: HEMOGLOBIN 11.1 gm/dL (12.0-16.0)
[2017-01-30 07:16] LABS: ALBUMIN SERUM 2.1 g/dL (3.5-5.0); BILIRUBIN,TOTAL 0.4 mg/dL (0.2-2.0); BUN/CREATININE RATIO 57.5; CALCIUM SERUM 8.8 mg/dL (8.4-10.2); CREATININE SERUM 0.4 mg/dL (0.6-1.4); GLOM FILT RATE Estimated 102.6 mL/min (>60); POTASSIUM 3.5 mmol/L (3.5-5.1); PROTEIN TOTAL SERUM 5.4 g/dL (6.0-8.3)
[2017-01-30 08:05] LABS: ARTERIAL BLD GAS O2 SATURATION 98.8 % (90.0-100.0); ARTERIAL BLOOD GAS CARBOXY HB 0.2 %sat (0.0-9.0); ARTERIAL BLOOD GAS HCO3 26.4 mmol/L; ARTERIAL BLOOD GAS MET HB 0.6 %sat (0.0-2.0); ARTERIAL BLOOD GAS PCO2 43.5 mmHg (35.0-45.0); ARTERIAL BLOOD GAS pH 7.392 (7.350-7.450)
[2017-01-30 08:07] LABS: ARTERIAL BLOOD GAS ALLEN TEST N; ARTERIAL BLOOD GAS ART SITE RIGHT RADIAL; ARTERIAL BLOOD GAS DELIVERY HIFLOW; ARTERIAL DRAW? YES
[2017-01-31 03:50] LABS: ARTERIAL BLD GAS O2 SATURATION 93.3 % (90.0-100.0); ARTERIAL BLOOD GAS CARBOXY HB 0.7 %sat (0.0-9.0); ARTERIAL BLOOD GAS MET HB 0.7 %sat (0.0-2.0); ARTERIAL BLOOD GAS PCO2 43.2 mmHg (35.0-45.0); ARTERIAL BLOOD GAS pH 7.405 (7.350-7.450)
[2017-01-31 03:59] LABS: ARTERIAL BLOOD GAS PO2 65.3 mmHg (80.0-100)
[2017-01-31 04:00] LABS: ARTERIAL BLOOD GAS ALLEN TEST NORMAL; ARTERIAL BLOOD GAS ART SITE RIGHT RADIAL; ARTERIAL BLOOD GAS DELIVERY NASAL CANNULA; ARTERIAL DRAW? YES
[2017-01-31 04:34] LABS: HEMATOCRIT 34.6 % (35.0-45.0); MEAN CELL VOLUME 108.5 FL (83-96); MEAN CORPUSCULAR HEMOGLOBIN 34.6 PG (28-34); MEAN CORPUSCULAR HGB CONC 31.9 g/dL (30-36); MEAN PLATELET VOLUME 8.7 FL (6.5-11.5); RED BLOOD COUNT 3.19 X10e (3.90-5.30); RED CELL DISTRIBUTION WIDTH 13.3 % (11.0-15.5); WHITE BLOOD COUNT 21.2 X10e3 (4.0-10.5)
[2017-01-31 06:34] LABS: ALBUMIN SERUM 2.2 g/dL (3.5-5.0); BILIRUBIN,TOTAL 0.6 mg/dL (0.2-2.0); CALCIUM SERUM 9.1 mg/dL (8.4-10.2); CREATININE SERUM 0.5 mg/dL (0.6-1.4); GLOM FILT RATE Estimated 95.4 mL/min (>60); POTASSIUM 3.3 mmol/L (3.5-5.1); PROTEIN TOTAL SERUM 5.5 g/dL (6.0-8.3)
[2017-01-31 15:53] LABS: BODY FLUID SOURCE BRONCHIAL LAVAGE
[2017-01-31 15:54] LABS: BODY FLUID APPEARANCE CLOUDY
[2017-02-01 06:55] LABS: HEMATOCRIT 35.9 % (35.0-45.0); HEMOGLOBIN 11.5 gm/dL (12.0-16.0); MEAN CELL VOLUME 107.7 FL (83-96); MEAN CORPUSCULAR HEMOGLOBIN 34.4 PG (28-34); MEAN PLATELET VOLUME 8.8 FL (6.5-11.5); RED BLOOD COUNT 3.34 X10e (3.90-5.30); RED CELL DISTRIBUTION WIDTH 13.5 % (11.0-15.5); WHITE BLOOD COUNT 13.7 X10e3 (4.0-10.5)
[2017-02-01 07:29] LABS: CREATININE SERUM 0.6 mg/dL (0.6-1.4); GLOM FILT RATE Estimated 89.8 mL/min (>60); MAGNESIUM 1.7 mg/dL (1.6-3.0); POTASSIUM 4.1 mmol/L (3.5-5.1)
[2017-02-02] MEDS ORDERED: K-DUR20 ME1 PO (22:15)
[2017-02-02] MEDS ORDERED: PREDNISONE1 MG PO (22:17)
[2017-02-02] MEDS ORDERED: FUROSEMIDE40 MG PO (22:29)
[2017-02-02] MEDS ORDERED: ACETYLCYST200 MG/11 NEB (22:31)
[2017-02-02] MEDS ORDERED: ACETYLCYST100 MG/1 M INH (22:33)
[2017-02-02] MEDS ORDERED: ALB/IPRATROPIUM/1 E1 INH (22:38)
== END 2017-02-02 23:15 | disposition home or self-care (01) | DRG 166 ==
LOC: CED 15:50 → CEDOF 17:35 → C3A PCU 17:35 → CED 17:35 → C3A PCU 22:12 → CEDOF 22:12 → C3A PCU 02-02 23:15
PROVIDERS: Emergency Medicine; Internal Medicine; Physician Assistant Medical
PROC: B32TYZZ Computerized Tomography (CT Scan) of Left Pulmonary Artery using Other Contrast (ICD-10-PCS; 2017-01-29)
PROC: B32SYZZ Computerized Tomography (CT Scan) of Right Pulmonary Artery using Other Contrast (ICD-10-PCS; 2017-01-29)
PROC: 0B9M8ZZ Drainage of Bilateral Lungs, Via Natural or Artificial Opening Endoscopic (ICD-10-PCS; principal; 2017-01-31 10:00)
PROC: 0B9J8ZX Drainage of Left Lower Lung Lobe, Via Natural or Artificial Opening Endoscopic, Diagnostic (ICD-10-PCS; 2017-01-31 10:00)
DX: J96.21 Acute and chronic respiratory failure with hypoxia (principal); J18.9 Pneumonia, unspecified organism; I50.43 Acute on chronic combined systolic (congestive) and diastolic (congestive) heart failure; I95.9 Hypotension, unspecified; I42.9 Cardiomyopathy, unspecified; J44.1 Chronic obstructive pulmonary disease with (acute) exacerbation; K26.9 Duodenal ulcer, unspecified as acute or chronic, without hemorrhage or perforation; J98.19 Other pulmonary collapse; K20.9 Esophagitis, unspecified; K22.2 Esophageal obstruction; F41.9 Anxiety disorder, unspecified
CPT/HCPCS: 36415; 36600; 71010; 71020; 71275; 74176; 74230; 80048; 80053; 80076; 82550; 82553; 82803; 83605; 83735; 83880; 84484; 85025; 85027; 85610; 87040; 87070; 87102; 87106; 87107; 87116; 87205; 87206; 87252; 87254; 87278; 88108; 88305; 88312; 89051; 92526; 92611; 93005; 94640; 94664; 94760; 96361; 96374; 96375; 97110; 97116; 97163; 97166; 97530; 97535; 99284; C9113; G8978-GP; G8979-GP; G8987-GO; G8988-GO; G8996-GN; G8997-GN; G8998-GN; J0171; J0456; J0696; J1650; J1940; J2250; J2405; J2930; J3010; J3420; Q9967